=== PATIENT | male | born 1985 | race Caucasian/White ===

== ENCOUNTER 2017-04-06 12:27 | Emergency (ER) | payer OTHER ==
[2017-04-06 12:50] VITALS: TEMP 98.1
[2017-04-06] MEDS ORDERED: traMADol 50 MG TAB PO ONE (14:53)
--- NOTE | 2017-04-06 14:58 | EDPHY ---
H & P Time Seen by Provider: 04/06/17 14:54 HPI/ROS: HPI: This is a 31-year-old female who presents with Chief Complaint: Right hand pain Location: Right hand Quality: Pain Duration: Since this morning Signs and Symptoms: No radiation, no weakness, positive swelling, no decreased range of motion Timing: Gradual onset Severity: Moderate Context: Patient reports that he is generally healthy went out drinking with his friends last night. Unsure of exactly what happened but believes that he may have fallen and hit his hand on the cement? No loss of consciousness. Right hand dominant. Modifying Factors: Not taken any [id number] medications for pain. Comment: ROS: Eyes: No blurred vision Respiratory: No shortness of breath, no cough Cardiovascular: No chest pain Gastrointestinal: No nausea, no vomiting no diarrhea Genitourinary: No dysuria Extremities: No myalgias Neurologic: No weakness, no numbness Skin: No rashes Hematologic: No bruising, no bleeding MEDICAL/SURGICAL HISTORY: Depression. Denies any surgical history. Social History: Employed. Smoking Status: Current every day smoker Physical Exam: CONSTITUTIONAL: Well-appearing adult white male, obese, awake and alert, no obvious distress HEENT: Atraumatic and normocephalic, PERRL, EOMI. Tympanic membranes clear. . Oropharynx clear, no exudate and moist pink mucosa. Airway patent. No lymphadenopathy. No meningismus. Cardiovascular: Normal S1/S2, regular rate, regular rhythm, without murmur rub or gallop. PULMONARY/CHEST: Symmetrical and nontender. Clear to auscultation bilaterally Good air movement. No accessory muscle usage. ABDOMEN: Soft, nondistended, nontender, no rebound, no guarding, no peritoneal signs, no masses or organomegaly. No CVAT. EXTREMITIES: 2/2 pulses, no deformities, no clubbing, no cyanosis or edema. Right hand 2nd through 4th mild swelling; tenderness to palpation over the 2nd through 4th metacarpals. Flexion, extension, light touch sensation intact. Right wrist full range of motion; no deformity; no swelling. Right elbow full range of motion. No scaphoid tenderness. NEUROLOGICAL: no focal neuro deficits. GCS 15. SKIN: Warm and dry, no erythema. no rash. Good capillary refill. Constitutional: Initial Vital Signs Temperature (C) 36.7 C 04/06/17 12:48 Heart Rate 88 04/06/17 12:48 Respiratory Rate 16 04/06/17 12:48 Blood Pressure 147/104 H 04/06/17 12:48 O2 Sat (%) 99 04/06/17 12:48 O2 Delivery Mode Room Air Allergies/Adverse Reactions: penicillin G Allergy (Verified 04/06/17 12:47) Home Medications: Medication Instructions Recorded Venlafaxine HCl 04/06/17 Medical Decision Making ED Course/Re-evaluation: X-ray, oral medication Hand x-ray reviewed by myself showing no acute fractures with mild soft tissue swelling No signs of neurovascular compromise Placed in a volar splint for comfort; follow-up in 1 week with Orthopedics if not improved Differential Diagnosis: Differential diagnosis includes but is not limited to fracture, neurovascular compromise, contusion. Departure - Departure Disposition: Home, Routine, Self-Care Clinical Impression: Contusion of right hand, initial encounter Condition: Good Instructions: Hand Sprain (ED) Additional Instructions: Wear splint until pain free. If pain persists greater than 1 week follow-up with Orthopedics. He may take ibuprofen 600-800 mg every 6-8 hours with food as needed for pain. Referrals: NONE *PRIMARY CARE P,. [Primary Care Provider] - As per Instructions Pawel Islas MD [Medical Doctor] - 5-7 days, if not improved
[2017-04-06 15:47] VITALS: BP 147/98; PULSE 95; RESP 14; O2SAT 98
== END 2017-04-06 15:47 | disposition home or self-care (01) ==
DX: S60.221A Contusion of right hand, initial encounter (principal); F17.200 Nicotine dependence, unspecified, uncomplicated; X58.XXXA Exposure to other specified factors, initial encounter